=== PATIENT | male | born 1955 | race Asian ===

== ENCOUNTER 2016-10-08 20:17 | Emergency (ER) | payer BC ==
[2016-10-08 20:58] LABS: % IMMATURE GRANULYOCYTES 0.1 % (0.0-1.1); ABSOLUTE IMMATURE GRANULOCYTES 0.01 10^3/uL (0.00-0.10); ADD DIFF? NO; ADD MORPH? NO; ADD SCAN? NO; ATYPICAL LYMPHOCYTE FLAG 20 (0-99); FRAGMENT RBC FLAG 0 (0-99); HEMATOCRIT 41.5 % (40.0-51.0); HEMOGLOBIN 14.4 g/dL (13.7-17.5); LEFT SHIFT FLG 0 (0-99); LIPEMIA HEMOLYSIS FLAG 90 (0-99); MEAN CELL HEMOGLOBIN 28.2 pg (27.9-34.1); MEAN CELL HEMOGLOBIN CONCENTR. 34.7 g/dL (32.4-36.7); MEAN CELL VOLUME 81.2 fL (81.5-99.8); PLATELET CLUMPS FLAG 0 (0-99); PLATELET COUNT 304 10^3/uL (150-400); RED BLOOD CELL COUNT 5.11 10^6/uL (4.40-6.38); RED CELL DISTRIBUTION WIDTH 11.9 % (11.5-15.2)
[2016-10-08 21:01] VITALS: TEMP 99.1
[2016-10-08] MEDS ORDERED: NS 1,000 ML IV ONE (21:03)
[2016-10-08 21:12] LABS: ALANINE AMINOTRANSFERASE 32 IU/L (21-72); ALKALINE PHOSPHATASE 70 IU/L (38-126); ANION GAP 15 mEq/L (8-16); ASPARTATE AMINOTRANSFERASE 21 IU/L (17-59); BILIRUBIN,TOTAL 0.8 mg/dL (0.1-1.4); CALCIUM 9.3 mg/dL (8.5-10.4); CARBON DIOXIDE 24 mEq/l (22-31); CHLORIDE 103 mEq/L (97-110); CREATININE 0.8 mg/dL (0.7-1.3); GLOMERULAR FILTRATION RATE > 60; GLUCOSE 95 mg/dL (70-100); SODIUM 142 mEq/L (134-144); TOTAL PROTEIN 7.7 g/dL (6.3-8.2)
[2016-10-08] MEDS ORDERED: IOPAMIDOL (ISOVUE-300) 100 ML BTL IV ONE (21:15)
--- NOTE | 2016-10-08 21:35 | UCPHY ---
H & P Time Seen by Provider: 10/08/16 20:59 Patient Type: New HPI/ROS: HPI Right-sided abdominal pain. 61-year-old male by private vehicle. He complains of right sided mid abdominal pain which has been intermittent since the constant since last night. He describes this is a dull in deep ache in the right side of his abdomen. He has not had any nausea or vomiting. No diarrhea. Denies any bloody or melenic stool. No fever. Last meal was earlier today. No prior abdominal surgical history. No urinary complaints. He reports feeling mildly feverish at times. No other complaints. ROS: Constitutional: As above, no chills. No weakness. Eyes: No discharge. No changes in vision. ENT: No sore throat. No nasal congestion or rhinorrhea. Respiratory: No cough. No shortness of breath. Cardiac: No chest pain, no palpitations. Gastrointestinal: As above, no vomiting, no diarrhea. Genitourinary: No hematuria. No dysuria or increased frequency with urination. Musculoskeletal: No back pain. No neck pain. No myalgias or arthralgias. Skin: No rashes. Neurological: No headache. No focal weakness or altered sensation. Past medical history: Hypothyroidism. Social history: Here with his . Nonsmoker. Physical Exam: General Appearance: Alert, no distress. This patient is responding to questions appropriately and in full sentences. This patient appears well- hydrated and well-nourished. Eyes: Pupils equal and round no pallor or injection. No lid edema, erythema or injection. Respiratory: There are no retractions, lungs are clear to auscultation with good air movement bilaterally. Cardiovascular: Regular rate and rhythm. No murmur. Gastrointestinal: Abdomen is soft with vague right-sided mid abdominal tenderness on palpation and mild periumbilical tenderness on palpation, no masses, bowel sounds normal. No focal tenderness at McBurney's point. No Zacarias sign. Neurological: Motor sensory function is grossly intact. Cranial nerves are normal. Gait is normal. Skin: Warm and dry, no rashes. Musculoskeletal: Neck is supple and nontender. Extremities are symmetrical. All joints range without pain or impingement. Psychiatric: No agitation. No depression. Database: EKG: Imaging: CT scan of abdomen and pelvis with IV contrast. Normal study. The appendix is well visualized and is normal. Results were discussed with staff radiologist Dr. Miguelito Ballesteros. Procedures: Emergency department course: IV placed. Vital signs reviewed. He was started on IV normal saline with 1 L to be given over the next hour. He consented for CT imaging to evaluate for possible appendicitis. Antiemetics and pain medications will be given as needed. 10:25 p.m., patient re-evaluated. Resting comfortably at this time. Repeat abdominal exam is soft, nontender nondistended. Results of his laboratory work and urinalysis as well as CT imaging discussed with him and his . The differential diagnosis was reviewed. He feels comfortable going home and I feel he is safe for discharge. Follow-up and return to emergency department precautions reviewed. All of his questions were answered. He was discharged in good condition. Differential Diagnosis: The differential diagnosis on this patient includes but is not limited to, enteritis, nephrolithiasis, pyelonephritis, appendicitis, colitis, constipation. This represents a partial list of diagnoses considered. These considerations are based on history, physical exam, past history, reassessment and diagnostic testing. Smoking Status: Never smoked Constitutional: Initial Vital Signs Temperature (C) 37.3 C 10/08/16 21:00 Heart Rate 81 10/08/16 21:00 Respiratory Rate 18 10/08/16 21:00 Blood Pressure 146/78 H 10/08/16 21:00 O2 Sat (%) 97 10/08/16 21:00 O2 Delivery Mode Room Air Allergies/Adverse Reactions: No Known Allergies Allergy (Unverified 10/08/16 20:54) Home Medications: Medication Instructions Recorded Levothyroxine 10/08/16 Medical Decision Making - Data Points Laboratory Results: Laboratory Results 10/08/16 20:49 10/08/16 20:49 10/08/16 10/08/16 10/08/16 22:10 20:49 20:49 WBC 6.91 10^3/uL 10^3/uL (3.80-9.50) RBC 5.11 10^6/uL 10^6/uL (4.40-6.38) Hgb 14.4 g/dL g/dL (13.7-17.5) Hct 41.5 % % (40.0-51.0) MCV 81.2 fL L fL (81.5-99.8) MCH 28.2 pg pg (27.9-34.1) MCHC 34.7 g/dL g/dL (32.4-36.7) RDW 11.9 % % (11.5-15.2) Plt Count 304 10^3/uL 10^3/uL (150-400) MPV 9.0 fL fL (8.7-11.7) Neut % (Auto) 60.0 % % (39.3-74.2) Lymph % (Auto) 29.4 % % (15.0-45.0) [place] % (Auto) 8.8 % % (4.5-13.0) Eos % (Auto) 1.3 % % (0.6-7.6) Baso % (Auto) 0.4 % % (0.3-1.7) Nucleat RBC Rel Count 0.0 % % (0.0-0.2) Absolute Neuts (auto) 4.14 10^3/uL 10^3/uL (1.70-6.50) Absolute Lymphs (auto) 2.03 10^3/uL 10^3/uL (1.00-3.00) Absolute Monos (auto) 0.61 10^3/uL 10^3/uL (0.30-0.80) Absolute Eos (auto) 0.09 10^3/uL 10^3/uL (0.03-0.40) Absolute Basos (auto) 0.03 10^3/uL 10^3/uL (0.02-0.10) Absolute Nucleated RBC 0.00 10^3/uL 10^3/uL (0-0.01) Immature Gran % 0.1 % % (0.0-1.1) Immature Gran # 0.01 10^3/uL 10^3/uL (0.00-0.10) Sodium 142 mEq/L mEq/L (134-144) Potassium 4.0 mEq/L mEq/L (3.5-5.2) Chloride 103 mEq/L mEq/L (97-110) Carbon Dioxide 24 mEq/l mEq/l (22-31) Anion Gap 15 mEq/L mEq/L (8-16) BUN 11 mg/dL mg/dL (7-23) Creatinine 0.8 mg/dL mg/dL (0.7-1.3) Estimated GFR > 60 Glucose 95 mg/dL mg/dL (70-100) Calcium 9.3 mg/dL mg/dL (8.5-10.4) Total Bilirubin 0.8 mg/dL mg/dL (0.1-1.4) AST 21 IU/L IU/L (17-59) ALT 32 IU/L IU/L (21-72) Alkaline Phosphatase 70 IU/L IU/L (38-126) Total Protein 7.7 g/dL g/dL (6.3-8.2) Albumin 4.0 g/dL g/dL (3.5-5.0) Lipase 85.0 IU/L IU/L (23-300) Urine Color Pending Urine Appearance Pending Urine pH Pending Ur Specific [place]yman Pending Urine Protein Pending Urine Ketones Pending Urine Blood Pending Urine Nitrate Pending Urine Bilirubin Pending Urine Urobilinogen Pending Ur Leukocyte Esterase Pending Urine RBC Pending Urine WBC Pending Ur Epithelial Cells Pending Ur Culture Indicated? Pending Urine Glucose Pending Medications Given: Discontinued Medications Sodium Chloride (Ns) 1,000 mls @ 0 mls/hr IV ONCE ONE PRN Reason: Wide Open Stop: 10/08/16 21:04 Last Admin: 10/08/16 21:10 Dose: 1,000 mls Departure - Departure Disposition: Home, Routine, Self-Care Clinical Impression: Abdominal pain Condition: Good Instructions: Acute Abdominal Pain (ED) Additional Instructions: Read and follow provided instructions. Follow-up with your primary care physician in 1-2 days for re-evaluation. Ibuprofen dosin mg every 6 hours with meals for the next 3 days only. Take only as needed for pain Return to the emergency department for worsening pain, fever, vomiting, bloody stool or other serious concerns. Referrals: Ruthie To MD [Primary Care Provider] - As per Instructions - PQRS PQRS Measurement: 134: Depression screening and followup, MD-PHQ2 (12 years and older) Over the last 2 weeks, how often have you been bothered by any of the following problems? 1. Feeling down, depressed, or hopeless? 2. Little interest or pleasure in doing things? Answered no to both questions. 130: Documentation of medications. Reviewed all patient medications, doses, route and frequency. 226: Do you smoke? No. 47: 65 and older: Advanced care planning. Patient designates surrogate decision maker as spouse. 51: 18 years old and older with diagnosis of COPD, spirometry performance. NA 52: 18 years old and older with COPD and symptoms of COPD or FEV1<60% predicted prescribed a B Agonist. NA
[2016-10-08 22:26] LABS: COLOR YELLOW; LEUKOCYTE ESTERASE,URINE NEGATIVE (NEGATIVE); NITRITE,URINE NEGATIVE (NEGATIVE); PH,URINE 5.5 (5.0-7.5)
[2016-10-08 22:44] LABS: RBC,URINE NONE SEEN /hpf (0-3); WBC,URINE NONE SEEN /hpf (0-3)
[2016-10-08 23:39] VITALS: BP 142/78; PULSE 76; RESP 14; O2SAT 96
== END 2016-10-08 22:53 | disposition home or self-care (01) ==
LOC: CED 20:17
DX: R10.9 Unspecified abdominal pain (principal); E03.9 Hypothyroidism, unspecified
CPT/HCPCS: 74177-PO; 80053-PO; 81003-PO; 81015-PO; 83690-PO; 85025-PO; 96360-PO; G0463-PO; Q9967

== ENCOUNTER 2016-10-09 15:53 | Emergency (ER) | payer BC ==
[2016-10-09 16:08] VITALS: BP 152/62; PULSE 78; RESP 18; TEMP 98; O2SAT 97
[2016-10-09] MEDS ORDERED: diphenhydrAMINE 25 MG CAP PO ONE (16:42)
[2016-10-09] MEDS ORDERED: predniSONE 20 MG TAB PO ONE (16:42)
--- NOTE | 2016-10-09 16:47 | UCPHY ---
H & P Time Seen by Provider: 10/09/16 16:05 Patient Type: Established HPI/ROS: 61-year-old male states he was here yesterday and received IV contrast for workup of abdominal pain, no longer having abdominal pain but he does have areas of redness and itching on his skin. Review of systems General no fever no chills no weakness HEENT no eye pain no eye discharge. No eye redness, no sore throat Respiratory no cough, no shortness of breath Cardiac no chest pain, no peripheral edema GI no abdominal pain, no diarrhea, no constipation, no nausea, no vomiting no flank pain, no hematuria, no dysuria Musculoskeletal no myalgias, no joint pain Heme no easy bruising, no easy bleeding Endo no polyuria, no polydipsia Skin positive rashes, no pruritus Neuro no syncope, no dizziness, no headaches Psych is no suicidal ideation, no homicidal ideation Past Medical/Surgical History: Hypothyroid Social History: No alcohol no drug Smoking Status: Never smoked Physical Exam: HEENT atraumatic normocephalic, extraocular muscles intact, anicteric Oropharynx negative for erythema negative exudate, tolerating her own secretions Neck supple no meningismus Lungs clear to auscultation bilaterally Heart regular rate and rhythm without murmur rub or gallop Abdomen nondistended normoactive bowel sounds soft nontender Back no CVA tenderness, no step-offs, no spinal tenderness Extremities no cyanosis clubbing or edema Neuro alert and oriented, no focal deficits Skin-scattered areas of maculopapular erythematous raised lesions blanching, very few Constitutional: Initial Vital Signs Temperature (C) 36.6 C 10/09/16 16:03 Heart Rate 78 10/09/16 16:03 Respiratory Rate 18 10/09/16 16:03 Blood Pressure 152/62 H 10/09/16 16:03 O2 Sat (%) 97 10/09/16 16:03 O2 Delivery Mode Room Air Allergies/Adverse Reactions: No Known Allergies Allergy (Unverified 10/08/16 20:54) Home Medications: Medication Instructions Recorded Levothyroxine 10/08/16 Medical Decision Making ED Course/Re-evaluation: Patient seen and evaluated for rash Impression Urticaria Plan Diphenhydramine Avoid heat Follow up with primary care physician - Data Points Medications Given: Discontinued Medications Prednisone (Prednisone) 60 mg PO EDNOW ONE Stop: 10/09/16 16:43 Last Admin: 10/09/16 16:55 Dose: 60 mg Departure - Departure Disposition: Home, Routine, Self-Care Clinical Impression: Urticaria Condition: Good Instructions: Urticaria (ED) Additional Instructions: you make take Diphenhydramine (also called Benadryl) Avoid heat, hot showers. Return if markedly worsening Referrals: Ruthie To MD [Primary Care Provider] - As per Instructions - PQRS PQRS Measurement: na
== END 2016-10-09 17:00 | disposition home or self-care (01) ==
LOC: CED 15:53
DX: L50.9 Urticaria, unspecified (principal); E03.9 Hypothyroidism, unspecified
CPT/HCPCS: 99214-PO; G0463-PO

== ENCOUNTER → 2016-11-02 | Outpatient (CLI) | payer BC | LOC: CIMAGING 09:32 | PROVIDERS: ATTEND Family Medicine | DX: R10.9 Unspecified abdominal pain (principal) | CPT/HCPCS: 76705-PO ==

== ENCOUNTER → 2017-02-26 | Outpatient (CLI) | payer BC | LOC: BRMIMAGING 13:15 | PROVIDERS: ATTEND Family Medicine | DX: E03.9 Hypothyroidism, unspecified (principal) ==